=== PATIENT | female | born 1980 | race Caucasian/White ===

== ENCOUNTER 2020-01-14 17:22 | Emergency (ER) | payer MEDICAID ==
[~2020-01-14] VITALS: Ht 154.9 cm; Wt 73.9 kg
[2020-01-14 17:31] VITALS: Ht 154.9 cm; Wt 73.9 kg
[2020-01-14 18:29] VITALS: BP 128/85
== END 2020-01-14 18:29 | disposition home or self-care (01) ==
LOC: ED 17:22
DX: S46.911A Strain of unspecified muscle, fascia and tendon at shoulder and upper arm level, right arm, initial encounter (principal); G89.29 Other chronic pain; Z90.49 Acquired absence of other specified parts of digestive tract; X58.XXXA Exposure to other specified factors, initial encounter; Y93.89 Activity, other specified; Y92.89 Other specified places as the place of occurrence of the external cause; Y99.8 Other external cause status